=== PATIENT | female | born 1995 | race Caucasian/White ===

== ENCOUNTER 2023-05-18 10:40 | Emergency (ER) | payer BC, SELFPAY ==
[2023-05-18 10:57] VITALS: BP 108/77; PULSE 61; RESP 16; TEMP 37.1; O2SAT 97; BMI 26.4
[2023-05-18 12:14] VITALS: BP 121/63; PULSE 61; RESP 18; O2SAT 96
--- NOTE | 2023-05-18 12:20 | W.ED.GENADLT ---
HPI - General Adult General: Chief complaint: General Medical Stated complaint: Sob, dizzy, Tinkling in right arm Time Seen by Provider: 05/18/23 12:19 History of Present Illness: 27-year-old female presents emergency department stating that she feels like she is lethargic and felt like her legs were weak. She states she also felt like she was swimming in her head . She denies syncope or near syncope. She denies chest pain. She states that she started having this feeling after taking hydroxyzine which is a new medication for her. She states she took 25 mg which was half of her 50 mg prescribed dose. She states that she feels better now that she is in the emergency department. She denies current weakness. Review of Systems General: Reports: 10 or more systems reviewed and unremarkable except in HPI and below Musc: Reports: muscle weakness Neuro: Reports: dizziness [facility] ED Female Reproductive History: Date of last menstrual period: 05/16/23 Physical Exam Narrative: EXAM NARRATIVE: Constitutional: the patient appears well nourished and with normal development. Vital signs reviewed as documented. HENMT: Normocephalic, atraumatic. External ears with normal appearance without drainage. Nose without drainage, normal appearance. Mucus membranes moist. Neck is supple, No jugular venous distension, trachea is midline, no appreciable carotid bruits. No lymphadenopathy. No meningeal signs. Flexion, extension and lateral rotation is without pain. Eyes: Pupils are equal, round, reactive to light and accommodation. No scleral icterus. Extra-ocular movement are intact. Thorax is symmetrical and with equal rise and fall with respirations. Resp: Lungs are clear to auscultation. No wheezes, rales, crackles or ronchi at pesent. Cardio: Regular rate and rhythm. Positive S1, S2. No appreciable murmurs, rubs or gallops. GI: Abdominal exam reveals normal bowel sounds to all quadrants. No organomegaly. No obvious palpable masses noted. No hepatomegaly appreciated. Soft, nontender to palpation. Extremity: Extremities are non-edematous and both femoral and pedal pulses are 2+ and equal bilaterally. Moves all extremities well, sensation in all extremities. Neuro: Alert and oriented x4, person, place, time and situation. Cranial nerves II through XII are grossly intact, there is no focal neurological deficits that I can appreciate at present. Motor strength in the upper and lower extremities are equal and bilateral 5/5. Psych: Cooperative, calm, normal thought process, appropriate judgment. Skin: No lesions, rashes. No gross abnormalities noted. Back: Symmetrical, no obvious deformity, No CVA tenderness Course Vital Signs: Vital signs: Vital Signs Temperature 98.7 F 05/18/23 10:57 Pulse Rate 61 05/18/23 12:14 Respiratory Rate 18 05/18/23 12:14 Blood Pressure 121/63 05/18/23 12:14 Pulse Oximetry 96 05/18/23 12:14 Oxygen Delivery Me thod Room Air 05/18/23 12:14 MDM - General Adult Medical Decision Making Physical exam completed and documented, I reviewed the patient's vital signs as documented. I will monitor the patient I suspect most likely this is a side effect of her hydroxyzine. I will obtain a twelve-lead EKG for evaluation. Differential Diagnosis Medication side effect, No radiology studies performed this visit Discharge Plan Discharge Patient Disposition: Home Clinical Impression: Medication side effect Condition: Stable Prescriptions: No Action hydroxyzine HCl 50 mg Tablet 50 mg PO BEDTIME ibuprofen 200 mg Tablet 600 - 800 mg PO Q6H PRN (Reason: Pain) Discharge Orders: Discharge ED (Routine); Ordered 05/18/23 Ordered By: Damir Tilley Discharge Diet: Advance as tolerated Discharge Activity: Resume usual activity Patient Instructions: Opioid Safety, Pain Management Activity Restrictions/Additional Instructions: Activity Restrictions/Additional Instructions: Thank you for choosing [facility] [place] for your healthcare needs today. Please realize that you were seen in the Emergency Department and that we are providing you with an emergency medical screening exam and this may not be complete and all inclusive of all the testing and or medical work-up that you may need to determine your ailment or severity of your illness. It is very important that you follow-up as instructed with your Primary care provider or Specialist for additional evaluation and to discuss your medical treatment plan. You may return to the Emergency Department should you have concerns or if your condition changes or worsens in any way. Coding Level of Care Code ED Crew Leader for Ramon [place]
--- NOTE | 2023-05-18 12:40 | ECG_ITS ---
[facility] Test Date: 2023-05-18 Pat Name: Miya Sellers Department: Room: Gender: Female [employer]: : 1995 Requested By: Damir Tilley Order Number: [id number] Llamas MD: Gilberto Huitron M.D. Measurements Intervals [place] Rate: 65 P: 68 HI: 166 QRS: 70 QRSD: 140 T: 57 QT: 431 QTc: 450 Interpretive Statements SINUS RHYTHM WITH MARKED SINUS ARRHYTHMIA RIGHT BUNDLE BRANCH BLOCK [120+ ms QRS DURATION, UPRIGHT V1, 40+ ms S IN I/aVL/V4/V5/V6] SEPTAL MYOCARDIAL INFARCTION , OF INDETERMINATE AGE [40+ ms Q WAVE IN V1/V2] No previous ECG available for comparison Electronically Signed On 05-18-2023 15:40:50 PRIVATE CLIENT ADVISOR by Gilberto Huitron M.D. [email or web address]
[2023-05-18 13:45] VITALS: BP 122/91; PULSE 70; RESP 17; O2SAT 96
[2023-05-18 13:49] VITALS: BP 122/91; PULSE 70; RESP 17; TEMP 37.1; O2SAT 96
== END 2023-05-18 13:50 | disposition home or self-care (01) ==
PROVIDERS: Emergency Provider Internal Medicine
DX: T88.7XXA Unspecified adverse effect of drug or medicament, initial encounter (principal); T43.595A Adverse effect of other antipsychotics and neuroleptics, initial encounter
CPT/HCPCS: 93005; 99283

== ENCOUNTER → 2023-10-02 11:03 | Outpatient (BNVA) | payer BC, SELFPAY | PROVIDERS: PCP Family Medicine; Visit Provider Internal Medicine Cardiovascular Disease | DX: R07.9 Chest pain, unspecified (principal) | CPT/HCPCS: 93005 ==

== ENCOUNTER 2023-10-11 13:49 | Outpatient (CLI) | payer BC, SELFPAY ==
--- NOTE | 2023-10-11 14:00 | USCV_ITS ---
Miya Sellers Age: 28 Gender: F : 1995 Exam Date: 10/11/2023 14:18 Ordering Phys: Gilberto Huitron MD ([email or web address]) Technologist: MELYSSA Exam Location: [facility] [place] Indication: ABNORMAL EKG BP: 116 / 68 HR: 68 Rhythm: Sinus Technical Quality: Adequate MEASUREMENTS (Male / Female) Normal Values 2D ECHO LV Diastolic Diameter PLAX 3.2 cm 4.2 - 5.9 / 3.9 - 5.3 cm IVS Diastolic Thickness 0.9 cm 0.6 - 1.0 / 0.6 - 0.9 cm IVS Systolic Thickness 1.8 cm LVPW Diastolic Thickness 1.8 cm 0.6 - 1.0 / 0.6 - 0.9 cm LVPW Systolic Thickness 2.1 cm LVOT Diameter 2.0 cm LV Ejection Fraction 2D Teich 69.5 % LV Ejection Fraction MOD 2C 64.8 % LV Ejection Fraction 2C AL 65.0 % LA Diameter 2.3 cm RA Systolic Volume 4C AL 16.6 ml RA Systolic Volume 4C MOD 16.4 ml LA Sys Volume AL 21.4 cm cubed LA Sys Volume Index AL 11.7 cm cubed/m squared Aorta at Sinotubular Diameter 2.2 cm IVC Diameter 1.6 cm M-MODE LA Ao Ratio MM 0.9 AV Cusp Separation MM 1.6 cm DOPPLER AV Peak Velocity 116.0 cm/s LVOT Peak Velocity 97.0 cm/s AV Area Cont Eq vti 2.9 cm squared AV Area Cont Eq pk 2.5 cm squared MV Peak Velocity 92.0 cm/s MV Area PHT 3.9 cm squared Mitral E to A Ratio 2.0 TR Peak Velocity 166.0 cm/s TR Peak Gradient 11.0 mmHg TR Mean Velocity 133.0 cm/s TR Mean Gradient 7.6 mmHg TR Velocity Time Integral 59.2 cm TV Peak E Velocity 53.0 cm/s Right Atrial Pressure 3.0 mmHg Pulmonary Artery Systolic Pressu 14.0 mmHg PV Peak Velocity 81.0 cm/s RV Ejection Time 0.4 s FINDINGS Left Ventricle .Normal left ventricular size and systolic function, EF 65%.no regional wall motion abnormalities. Right Ventricle The right ventricle is normal in size and function. Right Atrium The right atrium is normal in size. Left Atrium The left atrium is normal in size. Mitral Valve No gross abnormalities noted. Aortic Valve No gross abnormalities noted. The valve appears to be tricuspid. Tricuspid Valve Trace tricuspid valve regurgitation. Pulmonic Valve No gross abnormalities noted Pericardium Normal pericardium without effusion. Aorta Normal ascending aorta dimension. IVC The inferior vena cava appears normal. CONCLUSIONS .Normal left ventricular size and systolic function, EF 65%. No regional wall motion abnormalities. Normal cardiac chamber sizes. No gross valvular abnormalities. No intracardiac shunt by color-flow Doppler examination. There is no pericardial effusion. No similar previous studies are available for comparison Dr Gilberto Huitron MD FACC (Electronically Signed) Final Date: 17 October 2023 07:38 S
== END 2023-10-11 13:50 | disposition home or self-care (01) ==
LOC: RAD 13:53
PROVIDERS: PCP Family Medicine; Visit Provider Internal Medicine Cardiovascular Disease
DX: R06.09 Other forms of dyspnea (principal)
CPT/HCPCS: 93306